=== PATIENT | female | born 1990 | race Caucasian/White ===

== ENCOUNTER 2017-07-16 01:32 | Inpatient (IN) | payer BC ==
[2017-07-16 02:05] VITALS: BMI 27.9
[2017-07-16] MEDS: Lactated Ringer's 1,000 ML IV SCH ×2 (02:36→05:31)
[2017-07-16 03:32] LABS: Hematocrit 39.2 % (36.0-47.0); Mean Platelet Volume 7.5 fL (7.4-10.4); Red Blood Cell (RBC) Count 4.15 mill/uL (4.20-5.40); White Blood Cell (WBC) Count 14.9 thou/uL (4.8-10.8)
[2017-07-16] MEDS ORDERED: Fentanyl 4 mcg/Marc 0.1% Cadd 100 ML ONE (03:53)
[2017-07-16] MEDS ORDERED: ePHEDrine/0.9% NaCl/PF SYRINGE 50 mg/10 ml SLOW IVP PRN (05:43)
[2017-07-16] MEDS ORDERED: Promethazine HCl 25 MG/ML VIAL IM PRN (05:43)
[2017-07-16] MEDS ORDERED: Acetaminophen 325 MG TAB PO PRN (05:43)
[2017-07-16] MEDS ORDERED: Lactated Ringer's 500 ML IV PRN (05:43)
[2017-07-16] MEDS ORDERED: Naloxone HCl 0.4 mg/ml Vial IVP PRN ×2 (05:43)
[2017-07-16] MEDS ORDERED: Eucerin (Mineral Oil/Petrolatum,White) 30 gm Jar TOP PRN (05:43)
[2017-07-16] MEDS ORDERED: Ondansetron HCl/PF 4 MG/2 ML Vial IVP PRN ×2 (05:43→07:56)
[2017-07-16] MEDS ORDERED: diphenhydrAMINE 50 MG/ML VIAL IVP PRN (05:43)
[2017-07-16] MEDS ORDERED: Communication Order-Pharmacy FS SCH (05:45)
[2017-07-16] MEDS ORDERED: Fentanyl 4mcg/Marcaine 0.1% Cassette 100 ML EPIDURAL SCH (05:45)
[2017-07-16] MEDS ORDERED: Lidocaine 1% (PF) 30 ML VIAL ONE (07:08)
[2017-07-16] MEDS ORDERED: LR / Pitocin 40 units/1000 ml 1,000 ML ONE (07:08)
[2017-07-16] MEDS: LR / Pitocin 40 units/1000 ml 1,000 ML IV SCH ×2 (07:42→08:48)
[2017-07-16] MEDS ORDERED: Bisacodyl 10 MG SUPP PR PRN (07:56)
[2017-07-16] MEDS ORDERED: Benzocaine/Menthol 20-0.5% 60 ML CAN TOP PRN (07:56)
[2017-07-16] MEDS ORDERED: Acetaminophen/Codeine 30-300mg Tablet PO PRN ×2 (07:56)
[2017-07-16] MEDS ORDERED: diphenhydrAMINE 25 MG CAP PO PRN (07:56)
[2017-07-16] MEDS ORDERED: Preparation H Ointment 28 GM TUBE PR PRN (07:56)
[2017-07-16] MEDS ORDERED: Adacel (T-DAP) 0.5 ML VIAL IM ONE (07:56)
[2017-07-16] MEDS ORDERED: Lanolin Ointment 7 GM TUBE TOP PRN (07:56)
[2017-07-16] MEDS ORDERED: Milk Of Magnesia 30 ML UDCUP PO PRN (07:56)
[2017-07-16] MEDS ORDERED: Zolpidem Tartrate 5 MG TAB PO PRN (07:56)
[2017-07-16] MEDS ORDERED: Lidocaine 2% PF 5 ML VIAL ONE (11:11)
[2017-07-16] MEDS: Ferrous Sulfate 325 MG TAB PO SCH ×2 (11:16→15:23)
[2017-07-16] MEDS: Docusate (Surfak) 240 MG CAP PO SCH ×2 (11:18→20:47)
[2017-07-16] MEDS: Ibuprofen 800 MG TAB PO SCH ×2 (11:18→17:04)
[2017-07-16] MEDS: Prenatal Vitamin 1 TAB PO SCH (11:18)
[2017-07-17] MEDS: Ibuprofen 800 MG TAB PO SCH ×4 (00:52→21:43)
[2017-07-17] MEDS: HYDROcodone/Acetaminophen 5/325 mg Tablet PO PRN ×4 (01:09→18:35)
[2017-07-17 06:05] LABS: Hematocrit 31.8 % (36.0-47.0); Mean Platelet Volume 7.1 fL (7.4-10.4); White Blood Cell (WBC) Count 15.2 thou/uL (4.8-10.8)
[2017-07-17] MEDS: Docusate (Surfak) 240 MG CAP PO SCH ×2 (08:19→21:44)
[2017-07-17] MEDS: Ferrous Sulfate 325 MG TAB PO SCH ×2 (08:19→15:33)
[2017-07-17] MEDS: Prenatal Vitamin 1 TAB PO SCH (08:19)
[2017-07-18] MEDS: Ibuprofen 800 MG TAB PO SCH (05:37)
[2017-07-18] MEDS: HYDROcodone/Acetaminophen 5/325 mg Tablet PO PRN ×2 (05:46→09:54)
[2017-07-18 08:03] VITALS: BP 114/66; TEMP 98.1
[2017-07-18] MEDS: Docusate (Surfak) 240 MG CAP PO SCH (09:32)
[2017-07-18] MEDS: Prenatal Vitamin 1 TAB PO SCH (09:32)
[2017-07-18] MEDS: Ferrous Sulfate 325 MG TAB PO SCH (09:33)
== END 2017-07-18 11:30 | disposition home or self-care (01) | DRG 775 ==
LOC: L&D/OP 01:32 → L&D 04:30 → 3SW 10:41
PROVIDERS: ADMIT Obstetrics & Gynecology; ATTEND Obstetrics & Gynecology
PROC: 10E0XZZ Delivery of Products of Conception, External Approach (ICD-10-PCS; principal; 2017-07-16)
PROC: 0KQM0ZZ Repair Perineum Muscle, Open Approach (ICD-10-PCS; 2017-07-16)
DX: O70.1 Second degree perineal laceration during delivery (principal); Z37.0 Single live birth; O41.03X0 Oligohydramnios, third trimester, not applicable or unspecified; O99.334 Smoking (tobacco) complicating childbirth; O36.5930 Maternal care for other known or suspected poor fetal growth, third trimester, not applicable or unspecified; F17.200 Nicotine dependence, unspecified, uncomplicated; Z3A.38 38 weeks gestation of pregnancy; F32.9 Major depressive disorder, single episode, unspecified; G43.909 Migraine, unspecified, not intractable, without status migrainosus; K63.9 Disease of intestine, unspecified
CPT/HCPCS: 36415; 51702; 85027; 86780; 87340; 87389; 88307; 90715; 99285; J0595; J2001; J2405